=== PATIENT | female | born 2000 | race Hispanic/Latino ===

== ENCOUNTER 2020-04-07 12:50 | Emergency (ER) | payer SELFPAY ==
[2020-04-07 14:06] LABS: Bilirubin,Urine NEG (Negative); Blood,Urine NEG (Negative); Color,Urine Yellow (Yellow); Mucus,Urine 1+ /HPF; Protein,Urine <15 mg/dL mg/dL (Negative); Urobilinogen,Urine < 2.0 mg/dL (<2.0)
[2020-04-07 14:09] LABS: Basophils # (Auto) 0.1 K/mm3 (0.0-0.1); Basophils % (Auto) 0.7 % (0.0-1.8); Eosinophils # (Auto) 0.1 K/mm3 (0.0-0.4); Eosinophils % (Auto) 0.8 % (0.0-4.3); Hematocrit 40.9 % (30.3-42.9); Hemoglobin 13.9 gm/dl (10.1-14.3); Lymphocytes # (Auto) 1.6 K/mm3 (1.2-5.4); Lymphocytes % (Auto) 17.5 % (13.4-35.0); Mean Corpuscular HGB Conc 34 % (30-34); Mean Corpuscular Volume 86 fl (79-97); Monocytes # (Auto) 0.6 K/mm3 (0.0-0.8); Monocytes % (Auto) 6.7 % (0.0-7.3); Platelet Count 279 K/mm3 (140-440); Red Blood Count 4.78 M/mm3 (3.65-5.03)
--- NOTE | 2020-04-07 14:17 | Emergency Department Report ---
ED General Adult HPI - General Chief complaint: Abdominal Pain Stated complaint: ABD PAIN Time Seen by Provider: 04/07/20 13:21 Source: patient Mode of arrival: Ambulatory Limitations: No Limitations - History of Present Illness Initial comments: 19-year-old female presents with complaints of intermittent generalized abdominal pain and nausea x3 days. She denies any past medical history or history of abdominal surgeries. Patient also denies any fever/chills/sweats, dysuria/hematuria/urinary frequency, vaginal discharge/dyspareunia, constipation, vomiting/diarrhea, cough, chest pain, or shortness of breath. She denies any current abdominal pain. Nausea occurs mostly with eating per patient. She reports her last menstrual cycle was approximately the first week of February 2019. - Related Data Previous Rx's Medication Instructions Recorded Last Taken Type Amoxicillin/Potassium Clav 1 each PO BID 5 Days #10 tablet 04/07/20 Unknown Rx [Augmentin 875-125 Tablet] Promethazine HCl [Promethazine TAB] 12.5 - 25 mg PO [id number] PRN #30 tab 04/07/20 Unknown Rx Allergies Allergy/AdvReac Type Severity Reaction Status Date / Time No Known Allergies Allergy Unverified 04/07/20 13:18 ED Review of Systems ROS: Stated complaint: ABD PAIN Other details as noted in HPI Constitutional: denies: chills, fever Respiratory: denies: shortness of breath Cardiovascular: denies: chest pain, palpitations Endocrine: denies: excessive sweating Gastrointestinal: abdominal pain, nausea. denies: vomiting, diarrhea, constipation, hematemesis, melena, hematochezia Genitourinary: denies: urgency, dysuria, frequency, hematuria, discharge, abnormal menses Musculoskeletal: denies: back pain Skin: denies: rash, change in color Neurological: denies: headache Hematological/Lymphatic: denies: swollen glands ED Past Medical Hx - Past Medical History Previous Medical History?: No - Surgical History Past Surgical History?: No - Social History Smoking Status: Never Smoker Substance Use Type: None - Medications Home Medications: Home Medications Medication Instructions Recorded Confirmed Last Taken Type Amoxicillin/Potassium Clav 1 each PO BID 5 Days #10 tablet 04/07/20 Unknown Rx [Augmentin 875-125 Tablet] Promethazine HCl [Promethazine TAB] 12.5 - 25 mg PO [id number] PRN #30 tab 04/07/20 Unknown Rx ED Physical Exam - General Limitations: No Limitations General appearance: alert, in no apparent distress, obese - Head Head exam: Present: atraumatic, normocephalic - Eye Eye exam: Present: normal appearance. Absent: scleral icterus - Neck Neck exam: Present: full ROM - Respiratory Respiratory exam: Present: normal lung sounds bilaterally. Absent: respiratory distress - Cardiovascular Cardiovascular Exam: Present: regular rate, normal rhythm - GI/Abdominal GI/Abdominal exam: Present: soft, normal bowel sounds. Absent: distended, tenderness, guarding, rebound, rigid - Extremities Exam Extremities exam: Present: full ROM - Back Exam Back exam: Present: full ROM. Absent: CVA tenderness (R), CVA tenderness (L) - Neurological Exam Neurological exam: Present: alert, oriented X3, normal gait - Psychiatric Psychiatric exam: Present: normal affect, normal mood - Skin Skin exam: Present: warm, dry, intact, normal color. Absent: rash, cyanosis, erythema ED Course Vital Signs 04/07/20 04/07/20 04/07/20 13:20 13:21 18:22 Temperature 98.6 F Pulse Rate 85 80 Respiratory 16 16 Rate Blood Pressure 130/76 111/68 [Right] O2 Sat by Pulse 99 99 Oximetry ED Medical Decision Making - Lab Data Result diagrams: 04/07/20 13:41 04/07/20 13:41 Lab Results 04/07/20 04/07/20 04/07/20 Range/Units 13:41 13:41 13:41 WBC 9.2 (4.5-11.0) K/mm3 RBC 4.78 (3.65-5.03) M/mm3 Hgb 13.9 (10.1-14.3) gm/dl Hct 40.9 (30.3-42.9) % MCV 86 (79-97) fl MCH 29 (28-32) pg MCHC 34 (30-34) % RDW 13.0 L (13.2-15.2) % Plt Count 279 (140-440) K/mm3 Lymph % (Auto) 17.5 (13.4-35.0) % [place] % (Auto) 6.7 (0.0-7.3) % Eos % (Auto) 0.8 (0.0-4.3) % Baso % (Auto) 0.7 (0.0-1.8) % Lymph # (Auto) 1.6 (1.2-5.4) K/mm3 [place] # (Auto) 0.6 (0.0-0.8) K/mm3 Eos # (Auto) 0.1 (0.0-0.4) K/mm3 Baso # (Auto) 0.1 (0.0-0.1) K/mm3 Seg Neutrophils % 74.3 H (40.0-70.0) % Seg Neutrophils # 6.9 (1.8-7.7) K/mm3 Sodium 134 L (137-145) mmol/L Potassium 3.9 (3.6-5.0) mmol/L Chloride 101.6 (98-107) mmol/L Carbon Dioxide 25 (22-30) mmol/L Anion Gap 11 mmol/L BUN 9 (7-17) mg/dL Creatinine 0.5 L (0.6-1.2) mg/dL Estimated GFR > 60 ml/min BUN/Creatinine Ratio 18 % Glucose 95 (65-100) mg/dL Calcium 8.4 (8.4-10.2) mg/dL Total Bilirubin 0.20 (0.1-1.2) mg/dL AST 29 (5-40) units/L ALT 39 (7-56) units/L Alkaline Phosphatase 61 (35-129) units/L Total Protein 6.6 (6.3-8.2) g/dL Albumin 3.5 L (3.9-5) g/dL Albumin/Globulin Ratio 1.1 % Lipase 24 (13-60) units/L HCG, Qual Positive (Negative) HCG, Quant (0-4) mIU/mL Urine Color (Yellow) Urine Turbidity (Clear) Urine pH (5.0-7.0) Ur Specific [place] (1.003-1.030) Urine Protein (Negative) mg/dL Urine Glucose (UA) (Negative) mg/dL Urine Ketones (Negative) mg/dL Urine Blood (Negative) Urine Nitrite (Negative) Urine Bilirubin (Negative) Urine Urobilinogen (<2.0) mg/dL Ur Leukocyte Esterase (Negative) Urine WBC (Auto) (0.0-6.0) /HPF Urine RBC (Auto) (0.0-6.0) /HPF U Epithel Cells (Auto) (0-13.0) /HPF Urine Mucus /HPF 04/07/20 04/07/20 Range/Units 13:41 Unknown WBC (4.5-11.0) K/mm3 RBC (3.65-5.03) M/mm3 Hgb (10.1-14.3) gm/dl Hct (30.3-42.9) % MCV (79-97) fl MCH (28-32) pg MCHC (30-34) % RDW (13.2-15.2) % Plt Count (140-440) K/mm3 Lymph % (Auto) (13.4-35.0) % [place] % (Auto) (0.0-7.3) % Eos % (Auto) (0.0-4.3) % Baso % (Auto) (0.0-1.8) % Lymph # (Auto) (1.2-5.4) K/mm3 [place] # (Auto) (0.0-0.8) K/mm3 Eos # (Auto) (0.0-0.4) K/mm3 Baso # (Auto) (0.0-0.1) K/mm3 Seg Neutrophils % (40.0-70.0) % Seg Neutrophils # (1.8-7.7) K/mm3 Sodium (137-145) mmol/L Potassium (3.6-5.0) mmol/L Chloride (98-107) mmol/L Carbon Dioxide (22-30) mmol/L Anion Gap mmol/L BUN (7-17) mg/dL Creatinine (0.6-1.2) mg/dL Estimated GFR ml/min BUN/Creatinine Ratio % Glucose (65-100) mg/dL Calcium (8.4-10.2) mg/dL Total Bilirubin (0.1-1.2) mg/dL AST (5-40) units/L ALT (7-56) units/L Alkaline Phosphatase (35-129) units/L Total Protein (6.3-8.2) g/dL Albumin (3.9-5) g/dL Albumin/Globulin Ratio % Lipase (13-60) units/L HCG, Qual (Negative) HCG, Quant 43998 H (0-4) mIU/mL Urine Color Yellow (Yellow) Urine Turbidity Slightly-cloudy (Clear) Urine pH 6.0 (5.0-7.0) Ur Specific [place] 1.020 (1.003-1.030) Urine Protein <15 mg/dl (Negative) mg/dL Urine Glucose (UA) Neg (Negative) mg/dL Urine Ketones Neg (Negative) mg/dL Urine Blood Neg (Negative) Urine Nitrite Neg (Negative) Urine Bilirubin Neg (Negative) Urine Urobilinogen < 2.0 (<2.0) mg/dL Ur Leukocyte Esterase Lg (Negative) Urine WBC (Auto) 25.0 H (0.0-6.0) /HPF Urine RBC (Auto) 6.0 (0.0-6.0) /HPF U Epithel Cells (Auto) 5.0 (0-13.0) /HPF Urine Mucus 1+ /HPF - Radiology Data Radiology results: report reviewed ULTRASOUND OBSTETRIC INDICATION / CLINICAL INFORMATION: pain in . TECHNIQUE: Transabdominal and Transvaginal. COMPARISON: None available. FINDINGS: GESTATIONAL SAC: Well-defined oval shape and intrauterine in location. YOLK SAC: No significant abnormality. EMBRYO/FETUS: No significant abnormality. - [place]-Rump Length = 1.5 cm = 7.6 weeks.days - Heart Rate, beats per minute (if present) = 160 ADNEXA: No significant abnormality. FREE FLUID: None. ADDITIONAL FINDINGS: There is a tiny 1.6 cm subchorionic hemorrhage IMPRESSION: 1. Single, living intrauterine with estimated sonographic age of 7.6 weeks.days. 2. Tiny 1.6 cm subchorionic hemorrhage is present. - Medical Decision Making 19-year-old female presents with complaints of intermittent generalized abdominal pain and nausea x3 days. She denies any past medical history or history of abdominal surgeries. Patient also denies any fever/chills/sweats, dysuria/hematuria/urinary frequency, vaginal discharge/dyspareunia, constipation, vomiting/diarrhea, cough, chest pain, or shortness of breath. She denies any current abdominal pain. Nausea occurs mostly with eating per patient. She reports her last menstrual cycle was approximately the first week of February 2019. Beta-hCG noted to be 58,516. No abdominal tenderness to palpation noted on exam. UA shows elevated WBCs at 25. Ultrasound shows 7.6-week IUP with small subchorionic hemorrhage. Patient denies any vaginal bleeding. Will treat UTI with Augmentin. Patient referred to [facility] and informed to follow-up within 3 to 5 days. Her vitals are normal, she is well-appearing, she is stable for discharge home. Strict return precautions were discussed in great detail with patient who verbalized understanding peer Critical care attestation.: If time is entered above; I have spent that time in minutes in the direct care of this critically ill patient, excluding procedure time. ED Disposition Clinical Impression: Nausea/vomiting in , First trimester , Subchorionic hematoma in first trimester UTI in Qualifiers: Trimester: first trimester Qualified Code(s): O23.41 - Unspecified infection of urinary tract in , first trimester Disposition: TO HOME OR SELFCARE Is pt being admited?: No Condition: Stable Instructions: Abdominal Pain During , Inql-mf-Cbus, Urinary Tract Infection, Adult, Subchorionic Hematoma, First Trimester of , Abdominal Pain (ED) Prescriptions: Promethazine HCl [Promethazine TAB] 12.5 - 25 mg PO [id number] PRN #30 tab PRN Reason: Nausea Amoxicillin/Potassium Clav [Augmentin 875-125 Tablet] 1 each PO BID 5 Days #10 tablet Referrals: [facility] [Provider Group] - 3-5 Days
[2020-04-07 14:25] LABS: Alanine Aminotransferase 39 units/L (7-56); Albumin 3.5 g/dL (3.9-5); Blood Urea Nitrogen 9 mg/dL (7-17); Calcium 8.4 mg/dL (8.4-10.2); Hemolysis Index 8
[2020-04-07 14:27] LABS: BUN/Creatinine Ratio 18
--- NOTE | 2020-04-07 17:40 | Ultrasound Report ---
ULTRASOUND OBSTETRIC INDICATION / CLINICAL INFORMATION: pain in . TECHNIQUE: Transabdominal and Transvaginal. COMPARISON: None available. FINDINGS: GESTATIONAL SAC: Well-defined oval shape and intrauterine in location. YOLK SAC: No significant abnormality. EMBRYO/FETUS: No significant abnormality. - [place]-Rump Length = 1.5 cm = 7.6 weeks.days - Heart Rate, beats per minute (if present) = 160 ADNEXA: No significant abnormality. FREE FLUID: None. ADDITIONAL FINDINGS: There is a tiny 1.6 cm subchorionic hemorrhage IMPRESSION: 1. Single, living intrauterine with estimated sonographic age of 7.6 weeks.days. 2. Tiny 1.6 cm subchorionic hemorrhage is present. Signer Name: Edison Solo MD Signed: 04/07/2020 5:36 PM Workstation Name: [email or web address]
--- NOTE | 2020-04-07 17:40 | Ultrasound Report ---
ULTRASOUND OBSTETRIC INDICATION / CLINICAL INFORMATION: pain in . TECHNIQUE: Transabdominal and Transvaginal. COMPARISON: None available. FINDINGS: GESTATIONAL SAC: Well-defined oval shape and intrauterine in location. YOLK SAC: No significant abnormality. EMBRYO/FETUS: No significant abnormality. - [place]-Rump Length = 1.5 cm = 7.6 weeks.days - Heart Rate, beats per minute (if present) = 160 ADNEXA: No significant abnormality. FREE FLUID: None. ADDITIONAL FINDINGS: There is a tiny 1.6 cm subchorionic hemorrhage IMPRESSION: 1. Single, living intrauterine with estimated sonographic age of 7.6 weeks.days. 2. Tiny 1.6 cm subchorionic hemorrhage is present. Signer Name: Edison Solo MD Signed: 04/07/2020 5:36 PM Workstation Name: [email or web address]
[2020-04-07 18:23] VITALS: BP 111/68
== END 2020-04-07 18:31 | disposition home or self-care (01) ==
LOC: ED 12:50
DX: O23.41 Unspecified infection of urinary tract in pregnancy, first trimester (principal); O41.8X10 Other specified disorders of amniotic fluid and membranes, first trimester, not applicable or unspecified; O21.8 Other vomiting complicating pregnancy; Z79.899 Other long term (current) drug therapy; Z3A.01 Less than 8 weeks gestation of pregnancy
CPT/HCPCS: 36415; 76801; 76817; 80053; 81001; 83690; 84702; 84703; 85025; 87086